=== PATIENT | female | born 1980 | race Hispanic/Latino ===

== ENCOUNTER → 2017-05-20 | Outpatient (CLI) | payer SELFPAY ==
[~2017-05-20] MED LIST: CIPR500T4 PO; HYOS0.1283 SL; IBUP-1780 PO; OMEP40CA36 PO; POLY119P5 PO; POLY17PO6 PO; PRD20T PO; TRAM50TA2 PO
--- NOTE | 2017-05-20 16:57 | Diagnostic Imaging Report ---
INDICATION: Right upper quadrant pain. TECHNIQUE: Multiple grayscale sonographic images were obtained of the right upper quadrant of the abdomen. CORRELATION STUDY: 12/18/2015. FINDINGS: LIVER: There is uniform echotexture within the visualized portions of the liver. GALLBLADDER: The gallbladder is present and demonstrates no definitive shadowing gallstones. No abnormal gallbladder wall thickening or pericholecystic fluid. COMMON BILE DUCT: Not well visualized, obscured. No findings to suggest significant intrahepatic bile duct dilatation. PANCREAS: Visualized portions appearing unremarkable. RIGHT KIDNEY: Measures 10.0 cm. The inferior and medial aspect of the kidney however is obscured by overlying bowel gas. OTHER: None. IMPRESSION: 1. Overall, somewhat limited right upper quadrant ultrasound evaluation with obscuration of the several anatomical structures. Visualized portions appear unremarkable. No definitive gallstones. Dictated by: Dictated on workstation # [id number]
== END ==
LOC: RAD 16:21
PROVIDERS: ATTEND Nurse Practitioner Family
DX: R10.11 Right upper quadrant pain (principal)
CPT/HCPCS: 76705

== ENCOUNTER → 2017-05-29 | Outpatient (CLI) | payer OTHER ==
[~2017-05-29] MED LIST changes: +CATHETER FLUSH 10 ML SYR IV PRN
--- NOTE | 2017-05-29 22:29 | Diagnostic Imaging Report ---
Hepatobiliary scan. INDICATION: Abdominal pain. This study was performed following administration of 5.26 mCi of Choletec. One can of Ensure was also utilized for the ejection fraction calculation. There are no previous nuclear medicine studies available for comparison. The abdominal ultrasound exam performed on 05/20/17 failed to show any sign of cholelithiasis or acute cholecystitis. On this study, there is uptake of the radiotracer by the gallbladder before 30 minutes. This would weigh against the diagnosis of acute cholecystitis. There is also extension of the radiotracer into the small bowel indicating the common bile duct is not obstructed. The ejection fraction is 48.7% (normal greater than 35%). IMPRESSION: 1. There is no evidence for acute cholecystitis or for obstruction of the common bile duct. 2. The ejection fraction is 48.7% and within normal limits. Dictated by: Dictated on workstation # [id number]
== END ==
LOC: CARD 10:09
PROVIDERS: ATTEND Nurse Practitioner Community Health
DX: R10.11 Right upper quadrant pain (principal)
CPT/HCPCS: 78227

== ENCOUNTER 2017-06-20 05:31 | Outpatient (CLI) | payer OTHER ==
[~2017-06-20] VITALS: Ht 157.5 cm; Wt 77.1 kg
[~2017-06-20 05:31] MED LIST changes: -CATHETER FLUSH 10 ML SYR IV PRN
[2017-06-20] MEDS ORDERED: OMEP20TA7 PO (08:46)
[2017-06-20] MEDS ORDERED: RT-ALBUINH IH (08:46)
[2017-06-20] MEDS ORDERED: ONDA4TAB11 SL (08:46)
[2017-06-24] MEDS ORDERED: PANT40TA2 PO (11:57)
== END 2017-06-20 08:48 ==
LOC: PREOP 05:31
PROVIDERS: ATTEND Surgery
DX: Z01.818 Encounter for other preprocedural examination (principal); R10.13 Epigastric pain

== ENCOUNTER 2017-06-24 08:41 | Day surgery (SDC) | payer OTHER ==
[~2017-06-24 08:41] MED LIST changes: +OMEP20TA7 PO; +ONDA4TAB11 SL; +RT-ALBUINH IH
--- OUTSIDE RECORDS SUMMARY | 2017-06-24 08:44 | XMS REPORT ---
Author Author ERICKA العراقي [facility] eClinicalWorks Address Unknown Phone Unavailable Care Team Providers Care Ball Machine Operator Name Role Phone ERICKA العراقي CP Unavailable Allergies, Adverse Reactions, Alerts Substance Reaction Event Type N.K.D.A. Info Not Available Non Drug Allergy Problems Problem Type Condition Code Onset Dates Condition Status Assessment Constipation K59.00 Active Assessment Anxiety F41.9 Active Problem Constipation K59.00 Active Problem Anxiety F41.9 Active Problem Moderate persistent asthma without complication J45.40 Active Assessment Hives L50.9 Active Assessment Moderate persistent asthma without complication J45.40 Active Problem Cough R05 Active Problem Encounter for dental examination Z01.20 Active Medications Medication Code System Code Instructions Start Date End Date Status Dosage ProAir HFA [facility] [address]-06 108 (90 Base) MCG/ACT Inhalation every 4 hrs prn May 30, 2016 1-2 puffs as needed Benadryl Allergy [facility] [address]-37 25 MG Orally every 6 hrs 1 tablet as needed Celexa [facility] [address]-69 20 mg Orally Once a day Aug 05, 2016 1 tablet Zyrtec Allergy [facility] [address]-93 10 mg Orally Once a day Aug 05, 2016 1 tablet Zantac [facility] [address]-46 150 MG Orally Once a day Aug 05, 2016 1 tablet at bedtime Flovent HFA [facility] [address]-18 44 MCG/ACT Inhalation Twice a day May 30, 2016 2 puffs MiraLax [facility] [address]-22 - Orally daily for constipation as needed Jul 17 grams PredniSONE [facility] [address]-05 10 mg Orally Once a day Aug 05, 2016 Aug 25, 2016 4 tablets daily X 4 days then 3 tabs daily x 3 days then 2 tabs daily X 2 days then 1 tab for 1 day Procedures Procedure Coding System Code Date NEB/MDI RX INITIAL CPT-4 73622 Aug 05, 2016 ALBUTEROL INHAL UNIT DOSE 1 MG CPT-4 J7613 Aug 05, 2016 MEASURE BLOOD OXYGEN LEVEL CPT-4 37449 Aug 05, 2016 Office Visit, Est Pt., Level 3 CPT-4 04539 Aug 05, 2016 Vital Signs Date/Time: Aug 05, 2016 Cardiac Monitoring Heart Rate 77 bpm Weight 172.8 lbs Height 62 in BMI 31.60 Index Oximetry on room air:98 % Blood Pressure Diastolic 68 mmHg Blood Pressure Systolic 100 mmHg Results Name Result Date Reference Range Unit Abnormality Flag NEBULIZER TREATMENT ALBUTEROL UNIT DOSE FORM INHALED Summary Purpose eClinicalWorks Submission
--- OUTSIDE RECORDS SUMMARY | 2017-06-24 08:44 | XMS REPORT ---
Author Author KAROL PANIAGUA eClinicalWorks Address Unknown Phone Unavailable Care Team Providers Care Flux Tube Attendant Name Role Phone KAROL PANIAGUA CP Unavailable Allergies, Adverse Reactions, Alerts Substance Reaction Event Type N.K.D.A. Info Not Available Non Drug Allergy Problems Problem Type Condition Code Onset Dates Condition Status Problem Encounter for dental examination Z01.20 Active Assessment Dental examination Z01.20 Active Problem Cough R05 Active Medications Medication Code System Code Instructions Start Date End Date Status Dosage Zyrtec Allergy [facility] [address]-34 10 mg Orally Once a day April 09, 2016 Aug 07, 2016 1 tablet ProAir HFA [facility] [address]-27 108 (90 Base) MCG/ACT Inhalation every 4 hrs prn May 30, 2016 1-2 puffs as needed Lovastatin [facility] [address]-67 10 mg Orally Once a day Jun 07, 2016 2 tablets Flovent HFA [facility] [address]-48 44 MCG/ACT Inhalation Twice a day May 30, 2016 2 puffs Fish Oil [facility] [address]-67 1000 MG Orally Once a day Jun 07, 2016Jun 1 capsule Procedures Procedure Coding System Code Date INTRAORL-PERIAPICAL 1 FILM 75343 CPT-4 D0220 Jul 03, 2016 LTD ORAL EVALUATION - PROBLEM FOCUS CPT-4 D0140 Jul 03, 2016 Vital Signs Date/Time: Jul 03, 2016 Blood Pressure Diastolic 78 mmHg Blood Pressure Systolic 115 mmHg Results No Known Results Summary Purpose eClinicalWorks Submission
--- OUTSIDE RECORDS SUMMARY | 2017-06-24 08:44 | XMS REPORT ---
Author Author MARGARET CHRISTOPHER Organization [facility] Address [address] [place] [address] Care Team Providers Care Product Safety Officer Name Role Phone MARGARET CHRISTOPHER Unavailable PROBLEMS Type Condition ICD9-CM Code WUF38-BQ Code Onset Dates Condition Status SNOMED Code Problem Cough R05 Active 21413403 Problem Encounter for dental examination Z01.20 Active 600329541 Assessment Cough R05 May, Active 52536001 Assessment Palpitation R00.2 May, Active 46319116 ALLERGIES Substance Reaction Event Type Date Status N.K.D.A. Unknown Non Drug Allergy May, Unknown SOCIAL HISTORY No smoking Hx information available PLAN OF CARE VITAL SIGNS Height 62 in 2016-05-30 Weight 172.6 lbs 2016-05-30 Heart Rate 72 bpm 2016-05-30 Respiratory Rate 16 2016-05-30 BMI 31.57 kg/m2 2016-05-30 Blood pressure systolic 102 mmHg 2016-05-30 Blood pressure diastolic 56 mmHg 2016-05-30 MEDICATIONS Medication Instructions Dosage Frequency Start Date End Date Duration Status Levaquin 500 MG Orally Once a day 1 tablet 24h May, May, 10 day(s) Active Flovent HFA 44 MCG/ACT Inhalation Twice a day 2 puffs 12h May, Active Zyrtec Allergy 10 mg Orally Once a day 1 tablet 24h Mar, Jul, 30 day(s) Active Benzonatate 100 MG Orally 3 times a day prn as directed May, May, 07 days Active ProAir HFA 108 (90 Base) MCG/ACT Inhalation every 4 hrs prn 1-2 puffs as needed May, Active RESULTS Name Result Date Reference Range MAGNESIUM, SERUM 2016-05-30 Magnesium, Serum 2.3 1.6-2.3 TSH 2016-05-30 TSH 1.000 0.450-4.500 CBC 2016-05-30 WBC 6.1 3.4-10.8 RBC 4.83 3.77-5.28 Hemoglobin 13.7 11.1-15.9 Hematocrit 40.9 34.0-46.6 MCV 85 79-97 MCH 28.4 26.6-33.0 MCHC 33.5 31.5-35.7 RDW 14.4 12.3-15.4 Platelets 313 150-379 Neutrophils 37 Lymphs 40 Monocytes 5 Eos 17 Basos 1 Neutrophils (Absolute) 2.3 1.4-7.0 Lymphs (Absolute) 2.4 0.7-3.1 Monocytes(Absolute) 0.3 0.1-0.9 Eos (Absolute) 1.0 0.0-0.4 Baso (Absolute) 0.0 0.0-0.2 Immature Granulocytes 0 Immature Grans (Abs) 0.0 0.0-0.1 LIPID PANEL 2016-05-30 Cholesterol, Total 250 100-199 Triglycerides 197 0-149 HDL Cholesterol 44 >39 VLDL Cholesterol Nikhil 39 5-40 LDL Cholesterol Calc 167 0-99 CMP 2016-05-30 Glucose, Serum 87 65-99 BUN 7 6-20 Creatinine, Serum 0.52 0.57-1.00 eGFR If NonAfricn Am 125 >59 eGFR If Africn Am 144 >59 BUN/Creatinine Ratio 13 8-20 Sodium, Serum 139 134-144 Potassium, Serum 4.8 3.5-5.2 Chloride, Serum 99 97-108 Carbon Dioxide, Total 25 18-29 Calcium, Serum 9.8 8.7-10.2 Protein, Total, Serum 7.5 6.0-8.5 Albumin, Serum 4.2 3.5-5.5 Globulin, Total 3.3 1.5-4.5 A/G Ratio 1.3 1.1-2.5 Bilirubin, Total <0.2 0.0-1.2 Alkaline Phosphatase, S 131 39-117 AST (SGOT) 46 0-40 ALT (SGPT) 73 0-32 Xray : Chest (IN HOUSE) 2016-05-30 PROCEDURES Procedure Date Ordered Related Diagnosis Body Site Office Visit, Est Pt., Level 5 May 30, 2016 EKG, TRACING (IN-HOUSE) 2016-05-30 NSR CHEST X-RAY May 30, 2016 LIPID PANEL May 30, 2016 ELECTROCARDIOGRAM, TRACING May 30, 2016 VENIPUNCT, ROUTINE* May 30, 2016 COMPLETE CBC W/AUTO DIFF WBC May 30, 2016 COMPREHEN METABOLIC PANEL May 30, 2016 ASSAY OF MAGNESIUM May 30, 2016 ASSAY THYROID STIM HORMONE May 30, 2016 IMMUNIZATIONS No Known Immunizations
--- OUTSIDE RECORDS SUMMARY | 2017-06-24 08:44 | XMS REPORT ---
Author Author ERICKA العراقي [facility] eClinicalWorks Address Unknown Phone Unavailable Care Team Providers Care Measurement Supervisor Name Role Phone ERICKA العراقي CP Unavailable Allergies, Adverse Reactions, Alerts Substance Reaction Event Type N.K.D.A. Info Not Available Non Drug Allergy Problems Problem Type Condition Code Onset Dates Condition Status Assessment Myalgia M79.1 Active Assessment Epigastric pain R10.13 Active Assessment Hives L50.9 Active Assessment Cough R05 Active Assessment Fever, unspecified fever cause R50.9 Active Medications Medication Code System Code Instructions Start Date End Date Status Dosage Zantac [facility][NOTE 3] [address]-18 150 MG Orally Twice a day Sep 04, 2015 1 tablet Promethazine-Codeine [facility][NOTE 3] [address]-20 6.25-10 MG/5ML Orally every 6 hrs Sep 04, 2015 5 - 10ml as needed Procedures Procedure Coding System Code Date Office Visit, Est Pt., Level 3 CPT-4 36257 Sep 04, 2015 VENIPUNCT, ROUTINE* CPT-4 33934 Sep 04, 2015 COMPLETE CBC W/AUTO DIFF WBC CPT-4 24943 Sep 04, 2015 Vital Signs Date/Time: Sep 04, 2015 Temperature 99.1 F Weight 165.4 lbs Height 62 in BMI 30.25 Index Blood Pressure Diastolic 68 mmHg Blood Pressure Systolic 96 mmHg Cardiac Monitoring Heart Rate 88 bpm Results Name Result Date Reference Range Unit Abnormality Flag ROUTINE VENIPUNCTURE CBC ----MCHC 34.2 81602581 31.5-35.7 g/dL ----MCH 30.4 56709655 26.6-33.0 pg ----Platelets 373 [id number] 150-379 x10E3/uL ----RDW 13.5 91852248 12.3-15.4 % ----Immature Granulocytes 0 75310648 % ----Immature Grans (Abs) 0.0 89031376 0.0-0.1 x10E3/uL ----Lymphs 18 46002784 % ----Monocytes 5 80518275 % ----Neutrophils 64 79856185 % ----Neutrophils (Absolute) 6.7 53127131 1.4-7.0 x10E3/uL ----Hematocrit 44.1 01928948 34.0-46.6 % ----Lymphs (Absolute) 1.9 63363761 0.7-3.1 x10E3/uL ----MCV 89 86737940 79-97 fL ----RBC 4.97 16231659 3.77-5.28 x10E6/uL ----Eos 13 51752271 % ----Basos 0 03126151 % ----Hemoglobin 15.1 29350065 11.1-15.9 g/dL ----Baso (Absolute) 0.0 91004371 0.0-0.2 x10E3/uL ----WBC 10.6 27060357 3.4-10.8 x10E3/uL ----Monocytes(Absolute) 0.6 25728557 0.1-0.9 x10E3/uL ----Eos (Absolute) 1.4 87971775 0.0-0.4 x10E3/uL H Summary Purpose eClinicalWorks Submission
--- OUTSIDE RECORDS SUMMARY | 2017-06-24 08:44 | XMS REPORT ---
Author Author HEATHER BECKER [facility] eClinicalWorks Address Unknown Phone Unavailable Care Team Providers Care Flowers Salesperson Name Role Phone HEATHER BECKER CP Unavailable Allergies, Adverse Reactions, Alerts Substance Reaction Event Type N.K.D.A. Info Not Available Non Drug Allergy Problems Problem Type Condition Code Onset Dates Condition Status Assessment Bronchitis J40 Active Medications Medication Code System Code Instructions Start Date End Date Status Dosage PredniSONE [facility] [address]-95 20 MG Orally Once a day Sep 18, 2015 Sep 23, 2015 as directed Azithromycin [facility] [address]-54 250 MG Orally Once a day Sep 18, 2015 Sep 23, 2015 2 tablets on the first day, then 1 tablet daily for 4 days Promethazine-Codeine [facility] [address]-13 6.25-10 MG/5ML Orally every 6 hrs Sep 04, 2015 Sep 25, 2015 5 - 10ml as needed Zantac [facility] [address]-26 150 MG Orally Twice a day Sep 04, 2015 1 tablet Procedures Procedure Coding System Code Date Office Visit, Est Pt., Level 3 CPT-4 47132 Sep 18, 2015 CHEST X-RAY CPT-4 11702 Sep 18, 2015 Vital Signs Date/Time: Sep 18, 2015 Temperature 97.8 F Weight 166.5 lbs Height 62 in BMI 30.45 Index Blood Pressure Diastolic 78 mmHg Blood Pressure Systolic 110 mmHg Cardiac Monitoring Heart Rate 78 bpm Results No Known Results Summary Purpose eClinicalWorks Submission
--- OUTSIDE RECORDS SUMMARY | 2017-06-24 08:45 | XMS REPORT ---
Author Author MARGARET CHRISTOPHER [facility] eClinicalWorks Address Unknown Phone Unavailable Care Team Providers Care Doubler Operator Name Role Phone MARGARET CHRISTOPHER CP Unavailable Allergies, Adverse Reactions, Alerts Substance Reaction Event Type N.K.D.A. Info Not Available Non Drug Allergy Problems Problem Type Condition Code Onset Dates Condition Status Assessment Other seasonal allergic rhinitis J30.2 Active Problem Encounter for dental examination Z01.20 Active Medications Medication Code System Code Instructions Start Date End Date Status Dosage Benadryl Allergy [facility] [address]-12 25 MG Orally every 6 hrs 1 [place] [address]-73 10 mg Orally twice a day April 09, 2016 April 14, 2016 1 tablet Zyrtec Allergy [facility] [address]-50 10 mg Orally Once a day April 09, 2016 Aug 07, 2016 1 tablet NyQuil NDC 0 not defined Procedures Procedure Coding System Code Date Office Visit, Est Pt., Level 3 CPT-4 05690 April 09, 2016 Vital Signs Date/Time: April 09, 2016 Cardiac Monitoring Heart Rate 68 bpm Weight 171.0 lbs Height 62 in Blood Pressure Diastolic 70 mmHg Blood Pressure Systolic 106 mmHg Results No Known Results Summary Purpose eClinicalWorks Submission
--- OUTSIDE RECORDS SUMMARY | 2017-06-24 08:45 | XMS REPORT | Continuity of Care Document ---
Author Author [facility] Organization [facility] Address Unknown Phone Unavailable Allergies Active Description Code Type Severity Reaction Onset Reported/Identified Relationship to Patient Clinical Status Yes No Known Drug Allergies [id number] Drug Allergy Unknown N/ A 09/04/2015 Medications Problems Date Dx Coded Attending Type Code Diagnosis Diagnosed By 09/04/2015 ADAM GENTILE MD Ot R55 SYNCOPE AND COLLAPSE 09/04/2015 ADAM GENTILE MD Ot T78.40XA ALLERGY, UNSPECIFIED, INITIAL ENCOUNTER 12/20/2015 RHYS POLANCO DO Ot K59.00 CONSTIPATION, UNSPECIFIED 12/20/2015 RHYS POLANCO DO Ot N83.20 UNSPECIFIED OVARIAN CYSTS 12/20/2015 RHYS POLANCO DO Ot R10.11 RIGHT UPPER QUADRANT PAIN 03/18/2016 RADHIKA MÉNDEZ, HANSA T Ot K59.00 CONSTIPATION, UNSPECIFIED 03/18/2016 RADHIKA MÉNDEZ, HANSA T Ot M54.5 LOW BACK PAIN 03/18/2016 RADHIKA MÉNDEZ, HANSA T Ot N83.20 UNSPECIFIED OVARIAN CYSTS 03/19/2016 RADHIKA MÉNDEZ, HANSA T Ot K59.00 CONSTIPATION, UNSPECIFIED 03/19/2016 RADHIKA MÉNDEZ, HANSA T Ot M54.5 LOW BACK PAIN 03/19/2016 RADHIKA MÉNDEZ, HANSA T Ot N83.20 UNSPECIFIED OVARIAN CYSTS 05/26/2017 JAIDEN LAL CATCHER PLUG Ot R10.11 RIGHT UPPER QUADRANT PAIN 05/29/2017 JAIDEN LAL CATCHER PLUG Ot R10.11 RIGHT UPPER QUADRANT PAIN 05/29/2017 JAIDEN LAL CATCHER PLUG Ot R10.11 RIGHT UPPER QUADRANT PAIN 05/30/2017 JAIDEN LAL CATCHER PLUG Ot R10.11 RIGHT UPPER QUADRANT PAIN Procedures Results Encounters ACCT No. Visit Date/Time Discharge Status Pt. Type Provider Facility Loc./Unit Complaint [id number] 06/20/2017 08:30:00 2016 23:59:59 CLS Preadmit KELSEY GONZALEZ DO [facility] PREOP EPIGASTRIC ABDOMINAL PAIN [id number] 05/29/2017 10:09:00 2016 23:59:59 CLS Outpatient MOY العراقي [facility] CARD RUQ PAIN R10.11 [id number] 05/20/2017 16:21:00 2016 23:59:59 CLS Outpatient JAIDEN LAL APRN [facility] RAD RUQ PAIN R10.11 [id number] 03/18/2016 05:20:00 2015 08:16:00 DIS Emergency RADHIKA MÉNDEZ, HANSA Larson [facility] ER BACK PAIN [id number] 12/18/2015 19:45:00 2015 15:34:00 DIS Inpatient RHYS POLANCO DO [facility] 4TH INTRACTABLE PAIN,VOMITING,LEUKOCYTOSIS [id number] 09/04/2015 15:54:00 2014 18:18:00 DIS Emergency KRUPA MÉNDEZ, ADAM Martinez [facility] ER ALLERGIC REACTION [id number] 06/24/2017 11:45:00 PEN Preadmit KELSEY GONZALEZ DO [facility] ENDO EPIGASTRIC ABDOMINAL PAIN
--- OUTSIDE RECORDS SUMMARY | 2017-06-24 08:45 | XMS REPORT ---
Author JENNIFER Serna [facility] eClinicalWorks Address Unknown Phone Unavailable Care Team Providers Care Dramatic Agent Name Role Phone JENNIFER JARVIS CP Unavailable Allergies No Known Allergies Problems Problem Type Condition Code Onset Dates Condition Status Assessment Dental examination Z01.20 Active Problem Encounter for dental examination Z01.20 Active Medications No Known Medications Procedures Procedure Coding System Code Date Dental no charge CPT-4 D0099 May 29, 2016 Results No Known Results Summary Purpose eClinicalWorks Submission
--- OUTSIDE RECORDS SUMMARY | 2017-06-24 08:45 | XMS REPORT ---
Author Author MARGARET CHRISTOPHER [facility] Address [address] [place] [address] Care Team Providers Care Independent Film Maker Name Role Phone MARGARET CHRISTOPHER Unavailable PROBLEMS Type Condition ICD9-CM Code DER70-DP Code Onset Dates Condition Status SNOMED Code Problem Cough R05 Active 01518568 Problem Encounter for dental examination Z01.20 Active 416117592 ALLERGIES Unknown Allergies SOCIAL HISTORY No smoking Hx information available PLAN OF CARE VITAL SIGNS MEDICATIONS Medication Instructions Dosage Frequency Start Date End Date Duration Status Fish Oil 1000 MG Orally Once a day 1 capsule 24h May, Jun, 30 day(s) Active Lovastatin 10 mg Orally Once a day 2 tablets 24h May, 30 day(s ) Active RESULTS No Results PROCEDURES No Known procedures IMMUNIZATIONS No Known Immunizations
--- OUTSIDE RECORDS SUMMARY | 2017-06-24 08:45 | XMS REPORT ---
Author Author MARGARET CHRISTOPHER [facility] Address [address] [place] [address] Care Team Providers Care Patternator Name Role Phone MARGARET CHRISTOPHER Unavailable PROBLEMS Type Condition ICD9-CM Code VQV95-YA Code Onset Dates Condition Status SNOMED Code Problem Cough R05 Active 70154864 Problem Encounter for dental examination Z01.20 Active 242418286 ALLERGIES Unknown Allergies SOCIAL HISTORY No smoking Hx information available PLAN OF CARE VITAL SIGNS MEDICATIONS Unknown Medications RESULTS No Results PROCEDURES No Known procedures IMMUNIZATIONS No Known Immunizations
[2017-06-24 08:50] VITALS: BP 106/66
[2017-06-24] MEDS ORDERED: LACTATED RINGERS 1,000 ML IV ONE (08:59)
[2017-06-24] MEDS ORDERED: HURRICAINE EXT TUBE (BENZOCAINE) XX PRN (09:00)
[2017-06-24] MEDS ORDERED: LACTATED RINGERS 1,000 ML IV SCH (09:30)
--- NOTE | 2017-06-24 10:33 | Progress Note-Pre Operative ---
Pre-Operative Progress Note H&P Reviewed The H&P was reviewed, patient examined and no changes noted. Date Seen by Provider: Jun 24, 2017 Time Seen by Provider: 10:32 Date H&P Reviewed: Jun 24, 2017 Time H&P Reviewed: 10:32 Pre-Operative Diagnosis: h pylori, epigastrc abdominal pain KELSEY GONZALEZ DO Jun 24, 2017 10:33 am
[2017-06-24] MEDS ORDERED: HURRICAINE EXT TUBE (BENZOCAINE) ONE (11:36)
[2017-06-24] MEDS ORDERED: proPOfol 200 MG/20 ML (DIPRIVAN) VIAL IV ONE (11:40)
[2017-06-24] MEDS ORDERED: MIDAZOLAM 2 MG/2 ML (VERSED) VIAL ONE (11:40)
[2017-06-24] MEDS ORDERED: PANT40TA2 PO (11:57)
--- NOTE | 2017-06-24 11:58 | Discharge Inst-Simple/Standard ---
Discharge Inst-Standard Discharge Medications New, Converted or Re-Newed RX: Transmitted to Pharmacy Patient Instructions/Follow Up Plan of Care/Instructions/FU: 2 weeks jasson Activity as Tolerated: Yes Discharge Diet: Regular Diet KELSEY GONZALEZ DO Jun 24, 2017 11:58 am
--- NOTE | 2017-06-24 11:59 | Progress Note-Post Operative ---
Post-Operative Progess Note Surgeon (s)/Macadam Raker (s) Surgeon KELSEY GONZALEZ DO Macadam Raker: na Pre-Operative Diagnosis h pylori, epigastrc abdominal pain Post-Operative Diagnosis gastritis Procedure & Operative Findings Date of Procedure 06/24/17 Procedure Performed/Findings egd c biopsy Anesthesia Type per ui ux engineer Estimated Blood Loss Estimated blood loss (mL): none Specimens/Packing Specimens Removed antrum KELSEY GONZALEZ DO Jun 24, 2017 11:59 am
[2017-06-24 12:30] VITALS: BP 104/53
[2017-06-24 12:58] VITALS: BP 107/55
[2017-06-24 13:10] VITALS: BP 107/55
--- NOTE | 2017-06-26 05:07 | OPERATIVE REPORT ---
DATE OF SERVICE: 06/24/2017 PREOPERATIVE DIAGNOSIS: Helicobacter pylori and epigastric abdominal pain. POSTOPERATIVE DIAGNOSIS: Gastritis. PROCEDURE: EGD with biopsy. SURGEON: Kelsey Reilly DO ANESTHESIA: Per COGNOS ADMINISTRATOR. ESTIMATED BLOOD LOSS: None. COMPLICATIONS: None. SPECIMEN: Antrum. INDICATIONS: The patient is a 36-year-old female who previously been treated for H. pylori. She also has continued epigastric abdominal pain. She understands risks and benefits of procedure and wished to proceed with the procedure. Consent was signed and in the chart. PROCEDURE: The patient was taken to the endoscopy suite, placed in the left lateral recumbent position. Timeout was performed. The scope was inserted in the mouth, down the esophagus, stomach and into the duodenum. There are no polyps, masses or ulcerations within the duodenum. The scope was slowly retracted back into the stomach, which was further insufflated noting erythematous changes present within the stomach. Biopsy of the antrum was obtained. The scope was retroflexed noting no hiatal hernia, no polyps, masses or ulcerations. Scope was returned to its normal position, slowly withdrawn back to the distal esophagus, which had normal appearance. There were no polyps, masses or ulcerations. Scope was then slowly retracted until completely removed, noting no other pathology. The patient tolerated procedure well without any complications. The patient had omeprazole stopped and was prescribed Protonix 40 mg daily and see if any improvement. She will follow up in the office in approximately 3 weeks. Job ID: [id number] DocumentID: [id number] Dictated Date: 06/24/2017 13:41:35 Crowning Hammer Operator Date: 06/25/2017 05:18:58 Dictated By: KELSEY REILLY DO
== END 2017-06-24 13:10 | disposition home or self-care (01) ==
LOC: ENDO 08:41
PROVIDERS: ATTEND Surgery
DX: K29.70 Gastritis, unspecified, without bleeding (principal); A04.8 Other specified bacterial intestinal infections; K21.9 Gastro-esophageal reflux disease without esophagitis
CPT/HCPCS: 84703; 88305; 88342

== ENCOUNTER → 2018-02-02 | Outpatient (CLI) | payer SELFPAY ==
[~2018-02-02] MED LIST changes: +PANT40TA2 PO
--- NOTE | 2018-02-02 13:59 | Diagnostic Imaging Report ---
INDICATION: Abdominal pain. Gallbladder sonography performed in the routine fashion. FINDINGS: The liver shows normal echogenicity with no focal lesions. Gallbladder is unremarkable with no gallstones or wall thickening. Portal vein is patent with flow in the normal direction towards the liver. Common duct measured 4 mm. The pancreas not well-seen due to overlying gas. Right kidney was normal measuring 11.8 cm in length. There is no ascites. IMPRESSION: Negative gallbladder sonography. Dictated by: Dictated on workstation # [id number]
== END ==
LOC: RAD 08:36
PROVIDERS: ATTEND Surgery
DX: R10.9 Unspecified abdominal pain (principal)
CPT/HCPCS: 76705

== ENCOUNTER 2020-06-20 16:53 | Observation (INO) | payer OTHER ==
[~2020-06-20] VITALS: Ht 160 cm; Wt 77.0 kg
[2020-06-20] VITALS (8 sets, daily range): BP systolic 110–121; BP diastolic 66–76
[~2020-06-20 16:53] MED LIST changes: +OMEP40CA27 PO; -OMEP40CA36 PO; -TRAM50TA2 PO; +TRM50T PO
[2020-06-20] MEDS ORDERED: KETOROLAC 30 MG/ML VIAL IVP ONE (18:15)
[2020-06-20] MEDS ORDERED: NS IV 1000 ML 1,000 ML IV SCH (18:15)
[2020-06-20] MEDS ORDERED: ONDANSETRON 4 MG/2 ML (SDV) Z0FRAN IVP ONE (18:15)
--- NOTE | 2020-06-20 18:19 | ED Abdominal Pain ---
General Chief Complaint: Abdominal/GI Problems Stated Complaint: R SIDE ABD PAIN Nursing Triage Note: Pt c/o bilat flank pain and RLQ abd pain and bloating since 1300 today. Pt reports 5 episodes of vomiting. Sepsis Screen: No Definite Risk Source of Information: Patient Exam Limitations: No Limitations History of Present Illness Date Seen by Provider: Jun 20, 2020 Time Seen by Provider: 17:59 Initial Comments 39-year-old female who presents to the emergency room with complaints of bilateral flank pain that radiates to her right lower quadrant abdominal bloating that started around 1300 today. She reports that she's had nausea and vomiting with 5 episodes of vomiting starting around 1300. She denies any fevers, dysuria, diarrhea. She was seen and evaluated at [facility] walk-in [facility] and referred here for possible kidney stone versus appendicitis. Timing/Duration: 4-6 Hours Location: RLQ, Flank Associated Symptoms: Denies Symptoms Allergies and Home Medications Allergies Coded Allergies: No Known Drug Allergies (Verified , 06/24/17) Home Medications Albuterol Sulfate 6.7 Gm Hfa.aer.ad, 2 PUFF IH Q6H PRN for SHORTNESS OF BREATH, (Reported) Ondansetron 4 Mg Tab.rapdis, 4 MG SL Q8H, (Reported) Pantoprazole Sodium 40 Mg Tablet.dr, 40 MG PO DAILY Prescribed by: KELSEY REILLY on 06/24/17 1157 Patient Home Medication List Home Medication List Reviewed: Yes Review of Systems Review of Systems Constitutional: see HPI; No chills, No fever Gastrointestinal: See HPI, Nausea, Vomiting Genitourinary: See HPI, Flank Pain All Other Systems Reviewed Negative Unless Noted: Yes Past Rvrcsyj-Dlzvbw-Bipvmf Hx Past Med/Social Hx: Reviewed Nursing Past Med/Soc Hx Patient Social History Alcohol Use: Denies Use Recreational Drug Use: No Smoking Status: Never a Smoker Recent Foreign Travel: No Contact w/Someone Who Travel: No Recent Infectious Disease Expo: No Recent Hopitalizations: No Immunizations Up To Date Tetanus Booster (TDap): Unknown Seasonal Allergies Seasonal Allergies: No Past Medical History Surgeries: Yes Tubal Ligation Respiratory: Yes Asthma Cardiac: Yes High Cholesterol Neurological: No 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 Disorders: No 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 No Pertinent Family Hx Physical Exam Vital Signs Vital Signs - First Documented 06/20/20 17:55 Temp 37.2 Pulse 74 Resp 18 B/P (MAP) 124/88 (100) Pulse Ox 98 O2 Delivery Room Air Capillary Refill : Less Than 3 Seconds Height/Weight/BMI Height: 5'2.00" Weight: 170lbs. 0.0oz. 77.452687ml; 30.00 BMI Method:Stated General Appearance: WD/WN, no apparent distress Respiratory: chest non-tender, lungs clear, normal breath sounds, no respiratory distress, no accessory muscle use Cardiovascular: normal peripheral pulses, regular rate, rhythm, no edema, no gallop, no JVD, no murmur Gastrointestinal: normal bowel sounds, non tender, soft, no organomegaly, no pulsatile mass Extremities: normal capillary refill Back: CVA tenderness (R), CVA tenderness (L) Neurologic/Psychiatric: alert, normal mood/affect, oriented x 3 Skin: normal color, warm/dry Progress/Results/Core Measures Results/Orders Lab Results Laboratory Tests Test 06/20/20 18:20 Range/Units White Blood Count 15.5 H 4.3-11.0 10^3/uL Red Blood Count 4.39 3.80-5.11 10^6/uL Hemoglobin 12.8 11.5-16.0 g/dL Hematocrit 38 35-52 % Mean Corpuscular Volume 87 80-99 fL Mean Corpuscular Hemoglobin 29 25-34 pg Mean Corpuscular Hemoglobin Concent 34 32-36 g/dL Red Cell Distribution Width 12.7 10.0-14.5 % Platelet Count 326 130-400 10^3/uL Mean Platelet Volume 11.0 9.0-12.2 fL Immature Granulocyte % (Auto) 0 % Neutrophils (%) (Auto) 82 H 42-75 % Lymphocytes (%) (Auto) 10 L 12-44 % Monocytes (%) (Auto) 3 0-12 % Eosinophils (%) (Auto) 3 0-10 % Basophils (%) (Auto) 0 0-10 % Neutrophils # (Auto) 12.7 H 1.8-7.8 10^3/uL Lymphocytes # (Auto) 1.6 1.0-4.0 10^3/uL Monocytes # (Auto) 0.5 0.0-1.0 10^3/uL Eosinophils # (Auto) 0.5 H 0.0-0.3 10^3/uL Basophils # (Auto) 0.1 0.0-0.1 10^3/uL Immature Granulocyte # (Auto) 0.1 0.0-0.1 10^3/uL Neutrophils % (Manual) 87 % Lymphocytes % (Manual) 11 % Monocytes % (Manual) 0 % Eosinophils % (Manual) 2 % Basophils % (Manual) 0 % Metamyelocytes % % Band Neutrophils 0 % Blood Morphology Comment NORMAL Sodium Level 137 135-145 MMOL/L Potassium Level 3.5 L 3.6-5.0 MMOL/L Chloride Level 102 98-107 MMOL/L Carbon Dioxide Level 24 21-32 MMOL/L Anion Gap 11 5-14 MMOL/L Blood Urea Nitrogen 10 7-18 MG/DL Creatinine 0.68 0.60-1.30 MG/DL Estimat Glomerular Filtration Rate > 60 BUN/Creatinine Ratio 15 Glucose Level 95 70-105 MG/DL Calcium Level 8.6 8.5-10.1 MG/DL Corrected Calcium 8.8 8.5-10.1 MG/DL Total Bilirubin 0.3 0.1-1.0 MG/DL Aspartate Amino Transf (AST/SGOT) 19 5-34 U/L Alanine Aminotransferase (ALT/SGPT) 22 0-55 U/L Alkaline Phosphatase 79 40-136 U/L Total Protein 7.2 6.4-8.2 GM/DL Albumin 3.8 3.2-4.5 GM/DL Amylase Level 48 25-125 U/L Lipase 16 8-78 U/L Serum Test, Qualitative NEGATIVE NEGATIVE My Orders Orders - LASHONDA CANNON Comprehensive Metabolic Panel (06/20/20 17:48) Lipase (06/20/20 17:48) Amylase (06/20/20 17:48) Ua Culture If Indicated (06/20/20 17:48) Hcg,Qualitative Serum (06/20/20 17:48) Ed Iv/Invasive Line Start (06/20/20 17:48) Cbc With Automated Diff (06/20/20 17:48) Ct Abd/Pelvis Wo(Kidney Stone) (06/20/20 17:48) Abdomen/Kub 1view (06/20/20 17:48) Ketorolac Injection (Toradol Injection) (06/20/20 18:15) Ondansetron Injection (Zofran Injectio (06/20/20 18:15) Ns Iv 1000 Ml (Sodium Chloride 0.9%) (06/20/20 18:15) Manual Differential (06/20/20 18:20) Piperacillin/Tazobactam (Bulk) (Zosyn In (06/20/20 19:30) Medications Given in ED Current Medications Medications Dose Ordered Sig/Kevin Route Start Time Stop Time Status Last Admin Dose Admin Ketorolac Tromethamine 30 mg ONCE ONCE IVP 06/20/20 18:15 06/20/20 18:16 DC 06/20/20 18:19 30 MG Ondansetron HCl 8 mg ONCE ONCE IVP 06/20/20 18:15 06/20/20 18:16 DC 06/20/20 18:19 8 MG Vital Signs/I&O 06/20/20 17:55 Temp 37.2 Pulse 74 Resp 18 B/P (MAP) 124/88 (100) Pulse Ox 98 O2 Delivery Room Air Blood Pressure Mean: 100 Progress Progress Note : Time: 19:12 Progress Note I have seen and evaluated the patient. I've informed her of her laboratory and imaging studies. Her pain has improved after medication. I did discuss the case with Dr. Reilly at this time and he agrees to take the patient to [place] tonight. Patient agrees with plan of care and plans for surgery. Departure Impression Primary Impression: Appendicitis Disposition: ADMITTED INPATIENT Condition: Stable/Unchanged Admissions Decision to Admit Reason: Admit from ER (General) Decision to Admit/Date: Jun 20, 2020 Time/Decision to Admit Time: 19:39 Departure-Patient Inst. Referrals: [facility] (PCP) Primary Care Physician RHYS POLANCO DO (Family) Primary Care Physician LASHONDA CANNON Jun 20, 2020 18:19
--- NOTE | 2020-06-20 18:31 | NUR ---
Patient's contacted for update on care per patient request.
[2020-06-20 18:40] LABS: BASOPHILS # (AUTO) 0.1 10^3/uL (0.0-0.1); BASOPHILS % (AUTO) 0 % (0-10); EOSINOPHILS # (AUTO) 0.5 10^3/uL (0.0-0.3); EOSINOPHILS % (AUTO) 3 % (0-10); HEMATOCRIT 38 % (35-52); HEMOGLOBIN 12.8 g/dL (11.5-16.0); LYMPHOCYTES # (AUTO) 1.6 10^3/uL (1.0-4.0); LYMPHOCYTES % (AUTO) 10 % (12-44); MEAN CORPUSCULAR HEMOGLOBIN 29 pg (25-34); MEAN CORPUSCULAR HGB CONC 34 g/dL (32-36); MEAN CORPUSCULAR VOLUME 87 fL (80-99); MONOCYTES # (AUTO) 0.5 10^3/uL (0.0-1.0); MONOCYTES % (AUTO) 3 % (0-12); NEUTROPHILS # (AUTO) 12.7 10^3/uL (1.8-7.8); NEUTROPHILS % (AUTO) 82 % (42-75); PLATELET COUNT 326 10^3/uL (130-400); WHITE BLOOD COUNT 15.5 10^3/uL (4.3-11.0)
--- NOTE | 2020-06-20 18:52 | Diagnostic Imaging Report ---
INDICATION: Bilateral flank pain, right lower quadrant pain. Time of exam: 6:42 PM Single view of the abdomen demonstrates bowel gas pattern to be nonobstructive. No pathologic calcifications are seen. IMPRESSION: No acute abnormality is detected. Dictated by: Dictated on workstation # [id number]
[2020-06-20 19:01] LABS: ALBUMIN 3.8 GM/DL (3.2-4.5); CHLORIDE 102 MMOL/L (98-107); POTASSIUM 3.5 MMOL/L (3.6-5.0); SODIUM 137 MMOL/L (135-145)
[2020-06-20 19:02] LABS: AMYLASE 48 U/L (25-125)
--- NOTE | 2020-06-20 19:02 | Diagnostic Imaging Report ---
PROCEDURE: CT urinary tract, rule out kidney stone. TECHNIQUE: Multiple contiguous axial images were obtained through the abdomen and pelvis without the use of intravenous contrast. Auto Exposure Controls were utilized during the CT exam to meet ALARA standards for radiation dose reduction. DATE: June 20, 2020. COMPARISON: Right upper quadrant ultrasound February 02, 2018. CT abdomen and pelvis March 18, 2016. INDICATION: 39-year-old female, bilateral flank and right lower quadrant abdominal pain. FINDINGS: There are limitations for evaluation of the abdominal organs, neoplastic processes, abscess, and limited evaluation of the vasculature relating to the lack of intravenous contrast. There is a 5 mm calcified left lower lobe granuloma. The additional visualized portions of the lung bases are clear. The heart is not enlarged. There is no identified pericardial effusion. The liver is unremarkable in size and contour. The gallbladder is unremarkable. There is no identified intrahepatic or extrahepatic bile duct dilation. The main pancreatic duct is not abnormally dilated. Limited noncontrast evaluation of the pancreatic parenchyma is unremarkable. The spleen is normal in size. The adrenal glands are unremarkable. Unremarkable appearance of the renal parenchyma. The urinary collecting systems are not distended. There is no identified renal or ureteral stone. Urinary bladder is unremarkable. The intestinal tract is not distended. The appendix is abnormally dilated with adjacent inflammatory stranding on axial image 16 adjacent sequential images. The appendix measures up to 12 mm in diameter. This is also well illustrated on coronal image 52 and adjacent sequential images. These findings are consistent with acute appendicitis. There is no free intraperitoneal air. There is no drainable fluid collection. There is no free pelvic fluid. There is no identified abnormally enlarged lymph node in the abdomen or pelvis which meets CT size criteria for adenopathy. There is a sclerotic lesion in the right proximal femoral diaphysis measuring 7 limited are in size with internal attenuation of 1161 Hounsfield units. This most likely relates to a benign bone island. There is no identified acute bony abnormality. IMPRESSION: CT ABDOMEN AND PELVIS. 1. Findings consistent with acute appendicitis without evidence of perforation or abscess. Dictated by: Dictated on workstation # [id number]
[2020-06-20 19:03] LABS: CALCIUM 8.6 MG/DL (8.5-10.1)
[2020-06-20 19:04] LABS: GLUCOSE 95 MG/DL (70-105); TOTAL PROTEIN 7.2 GM/DL (6.4-8.2)
[2020-06-20 19:05] LABS: CARBON DIOXIDE 24 MMOL/L (21-32)
[2020-06-20 19:06] LABS: BILIRUBIN,TOTAL 0.3 MG/DL (0.1-1.0)
[2020-06-20 19:07] LABS: ALKALINE PHOSPHATASE 79 U/L (40-136); CREATININE SERUM 0.68 MG/DL (0.60-1.30); GFR ESTIMATED > 60
[2020-06-20 19:09] LABS: BUN/CREATININE RATIO 15
[2020-06-20 19:10] LABS: ALANINE AMINOTRANSFERASE 22 U/L (0-55)
[2020-06-20 19:11] LABS: LIPASE 16 U/L (8-78)
[2020-06-20 19:12] LABS: BAND NEUTROPHILS 0 %; BASOPHILS % (MANUAL) 0 %; EOSINOPHILS % (MANUAL) 2 %; LYMPHOCYTES % (MANUAL) 11 %; MONOCYTES % (MANUAL) 0 %; NEUTROPHILS % (MANUAL) 87 %; RBC MORPH NORMAL
[2020-06-20] MEDS ORDERED: PIPERACILLIN/TAZOBACTAM (BULK) 4.5 GM in NS (IVPB) 100 ML IV ONE (19:30)
--- NOTE | 2020-06-20 19:41 | Consultation - Surgery ---
KINGSLEY PRICE MED STUDENT 06/20/201940: History of Present Illness History of Present Illness Patient Consulted On(alecia/time) 06/20/20 19:36 Date Seen by Provider: Jun 20, 2020 Time Seen by Provider: 07:30 Reason for Visit: abdominal pain History of Present Illness Consult placed by BOB Musa for appendicitis by CT scan. Evaluated in the emergency department The patient primarily speaks [place] but is able to speak some [place]ian. History initially limited due to language barrier. The patient complains of abdominal pain beginning at 1 pm with nausea and 2 episodes of vomiting. Pain radiates to the back. Denies home medication use. Reports allergy to acetaminophen. History of 4 vaginal deliveries, tubal ligation, no prior surgeries. CT abdomen pelvis impression: 1. Findings consistent with acute appendicitis without evidence of perforation or abscess. Interpreted by Dr. Cobb Allergies and Home Medications Allergies Coded Allergies: No Known Drug Allergies (Verified , 06/24/17) Home Medications Albuterol Sulfate 6.7 Gm Hfa.aer.ad, 2 PUFF IH Q6H PRN for SHORTNESS OF BREATH, (Reported) Ondansetron 4 Mg Tab.rapdis, 4 MG SL Q8H, (Reported) Pantoprazole Sodium 40 Mg Tablet.dr, 40 MG PO DAILY Prescribed by: KELSEY GONZALEZ on 06/24/17 1157 Past Vgavmfu-Kohwib-Xxzpuf Hx Patient Social History Alcohol Use: Denies Use Recreational Drug Use: No Smoking Status: Never a Smoker Recent Foreign Travel: No Contact w/Someone Who Travel: No Recent Infectious Disease Expo: No Recent Hopitalizations: No Immunizations Up To Date Tetanus Booster (TDap): Unknown Seasonal Allergies Seasonal Allergies: No Surgeries History of Surgeries: Yes Surgeries: Tubal Ligation Respiratory History of Respiratory Disorde: Yes Respiratory Disorders: Asthma Cardiovascular History of Cardiac Disorders: Yes Cardiac Disorders: High Cholesterol Neurological History of Neurological Disord: No 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 System Hx 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 Disorders: 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 Review of Systems-General ROS-Unable to Obtain: limited by language barrier Gastrointestinal: abdominal pain, nausea, vomiting Physical Exam-General Problems Physical Exam Vital Signs Vital Signs - First Documented 06/20/20 17:55 Temp 37.2 Pulse 74 Resp 18 B/P (MAP) 124/88 (100) Pulse Ox 98 O2 Delivery Room Air Capillary Refill : Less Than 3 Seconds General Appearance: WD/WN, no apparent distress HEENT: PERRL/EOMI Neck: non-tender, full range of motion, supple Respiratory: chest non-tender, lungs clear, normal breath sounds, no respiratory distress, no accessory muscle use Cardiovascular: regular rate, rhythm, no edema, no JVD, no murmur, gallop/S3 Gastrointestinal: soft, no organomegaly, no pulsatile mass, tenderness (moderate RLQ) Extremities: normal range of motion, non-tender Neurologic/Psychiatric: alert, normal mood/affect, oriented x 3 Skin: normal color, warm/dry Lymphatic: no adenopathy Data Review Labs Laboratory Tests 06/20/20 18:20: White Blood Count 15.5H, Red Blood Count 4.39, Hemoglobin 12.8, Hematocrit 38, Mean Corpuscular Volume 87, Mean Corpuscular Hemoglobin 29, Mean Corpuscular Hemoglobin Concent 34, Red Cell Distribution Width 12.7, Platelet Count 326, Mean Platelet Volume 11.0, Immature Granulocyte % (Auto) 0, Neutrophils (%) (Auto) 82H, Lymphocytes (%) (Auto) 10L, Monocytes (%) (Auto) 3, Eosinophils (%) (Auto) 3, Basophils (%) (Auto) 0, Neutrophils # (Auto) 12.7H, Lymphocytes # (Auto) 1.6, Monocytes # (Auto) 0.5, Eosinophils # (Auto) 0.5H, Basophils # (Auto) 0.1, Immature Granulocyte # (Auto) 0.1, Neutrophils % (Manual) 87, Lymphocytes % (Manual) 11, Monocytes % (Manual) 0, Eosinophils % (Manual) 2, Basophils % (Manual) 0, Metamyelocytes % , Band Neutrophils 0, Blood Morphology Comment NORMAL, Sodium Level 137, Potassium Level 3.5L, Chloride Level 102, Carbon Dioxide Level 24, Anion Gap 11, Blood Urea Nitrogen 10, Creatinine 0.68, Estimat Glomerular Filtration Rate > 60, BUN/Creatinine Ratio 15, Glucose Level 95, Calcium Level 8.6, Corrected Calcium 8.8, Total Bilirubin 0.3, Aspartate Amino Transf (AST/SGOT) 19, Alanine Aminotransferase (ALT/SGPT) 22, Alkaline Phosphatase 79, Total Protein 7.2, Albumin 3.8, Amylase Level 48, Lipase 16, Serum Test, Qualitative NEGATIVE Assessment/Plan Assessment/Plan Admission Diagonsis RLQ abdominal pain nausea vomiting acute appendicitis Assessment/Plan RLQ abdominal pain nausea vomiting acute appendicitis start Zosyn surgery for appendicitis KELSEY Bruce DO 06/20/202032: History of Present Illness History of Present Illness History of Present Illness Consult requested by Prasanna Aldridge for appendicitis Monogram Operator line used. 39 yr old female began having pain in the rlq abdomen today at 1 pm. Moves to the right hip and back. Contraction type pain. Having nausea and vomiting. Patient states movement makes worse, nothing better. WBC [address] scan reviewed and consistent with appendicitis. Allergies and Home Medications Allergies Coded Allergies: No Known Drug Allergies (Verified , 06/24/17) Home Medications Albuterol Sulfate 6.7 Gm Hfa.aer.ad, 2 PUFF IH Q6H PRN for SHORTNESS OF BREATH, (Reported) Ondansetron 4 Mg Tab.rapdis, 4 MG SL Q8H, (Reported) Pantoprazole Sodium 40 Mg Tablet.dr, 40 MG PO DAILY Prescribed by: KELSEY GONZALEZ on 06/24/17 7661 Patient Home Medication List Home Medication List Reviewed: Yes Past Ldzamhc-Ewndxd-Jniscf Hx Seasonal Allergies Seasonal Allergies: Yes Surgeries Surgeries: Tubal Ligation Respiratory History of Respiratory Disorde: Yes Respiratory Disorders: Asthma Cardiovascular History of Cardiac Disorders: No Neurological History of Neurological Disord: No 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 System : 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 Review of Systems-General Constitutional: No chills, No weakness EENTM: No ear pain, No blurred vision Respiratory: No cough, No dyspnea on exertion Cardiovascular: No chest pain, No edema Gastrointestinal: RLQ, abdominal pain (RLQ), nausea, vomiting Genitourinary: No decreased output, No discharge Musculoskeletal: back pain; No joint pain Skin: No change in color, No change in hair/nails Psychiatric/Neurological: Denies Anxiety, Denies Depressed, Denies Emotional Problems All Other Systems Reviewed Negative Unless Noted: Yes (Negative excepted noted.) Physical Exam-General Problems Physical Exam General Appearance: WD/WN, no apparent distress HEENT: PERRL/EOMI Neck: non-tender, full range of motion, supple Respiratory: chest non-tender, no respiratory distress, no accessory muscle use Cardiovascular: regular rate, rhythm, no edema, no JVD Gastrointestinal: soft, tenderness ( RLQ) Rectal: deferred Extremities: normal range of motion, non-tender Neurologic/Psychiatric: alert, normal mood/affect, oriented x 3 Skin: normal color, warm/dry Lymphatic: no adenopathy Assessment/Plan Assessment/Plan Assessment/Plan RLQ abdominal pain nausea vomiting acute appendicitis Zosyn NPO IV hydration consent for laparoscopic appendectomy all other indicated procedures patient discussed risks and benefits and wishes to proceed. to or. Supervisory-Addendum Brief Verification & Attestation Participated in pt care: history, MDM, physical Personally performed: exam, history, MDM, supervision of care Care discussed with: Medical Student Procedures: n/a Results interpretation: Verified all documentation Verification and Attestation of Medical Student E/M Service A medical student performed and documented this service in my presence. I rev iewed and verified all information documented by the medical student and made modifications to such information, when appropriate. I personally performed the physical exam and medical decision making. Kelsey Gonzalez, Jun 20, 2020,20:35 KINGSLEY PRICE MED STUDENT Jun 20, 2020 19:41 KELSEY GONZALEZ DO Jun 20, 2020 20:33
[2020-06-20 19:46] LABS: BILIRUBIN,URINE NEGATIVE (NEGATIVE); CLARITY,URINE CLEAR; COLOR,URINE YELLOW; GLUCOSE, URINE (UA) NEGATIVE (NEGATIVE); KETONES,URINE TRACE (NEGATIVE); LEUKOCYTE ESTERASE ,URINE NEGATIVE (NEGATIVE); NITRITE,URINE NEGATIVE (NEGATIVE); PROTEIN,URINE NEGATIVE (NEGATIVE)
[2020-06-20 19:57] LABS: BACTERIA,URINE TRACE /HPF; WBC,URINE RARE /HPF
[2020-06-20] MEDS ORDERED: NS (IVPB) 100 ML ONE (20:01)
[2020-06-20] MEDS ORDERED: PIPERACILLIN/TAZO 4.5 GM VIAL (ZOSYN) IV ONE (20:01)
[2020-06-20] MEDS ORDERED: ONDANSETRON 4 MG/2 ML (SDV) Z0FRAN ONE (20:12)
[2020-06-20] MEDS ORDERED: MIDAZOLAM 2 MG/2 ML (VERSED) VIAL ONE (20:12)
[2020-06-20] MEDS ORDERED: SEVOFLURANE (ULTANE) 15 ML INHAL SOLN ONE ×2 (20:12→21:29)
[2020-06-20] MEDS ORDERED: GLYCOPYRROLATE 0.2 MG/ML (ROBINUL) 2 ML VIAL ONE (20:12)
[2020-06-20] MEDS ORDERED: LIDOCAINE PF 2% 5 ML (XYLOCAINE) VIAL ONE (20:12)
[2020-06-20] MEDS ORDERED: fentaNYL INJECTION 100 MCG/2 ML AMP ONE (20:12)
[2020-06-20] MEDS ORDERED: NEOSTIGMINE 3 MG/3 ML VIAL ONE (20:12)
[2020-06-20] MEDS ORDERED: proPOfol 200 MG/20 ML (DIPRIVAN) VIAL IV ONE (20:12)
[2020-06-20] MEDS ORDERED: ROCURONIUM 10 MG/ML 5 ML SYRINGE IV ONE (20:12)
[2020-06-20] MEDS ORDERED: BUP/EPI 0.25% 1:200,000 (MARCAINE) 30 ML VIAL ONE (20:13)
[2020-06-20] MEDS ORDERED: LACTATED RINGERS 1,000 ML IV PRN (21:07)
[2020-06-20] MEDS ORDERED: ONDANSETRON 4 MG/2 ML (SDV) Z0FRAN IV PRN (21:45)
[2020-06-20] MEDS ORDERED: morphine INJ 10 MG/ML 1ML (SYR OR VIAL) ONE (21:46)
--- NOTE | 2020-06-20 21:59 | Progress Note-Post Operative ---
Post-Operative Progess Note Surgeon (s)/Nematology Teacher (s) Surgeon KELSEY GONZALEZ DO Nematology Teacher: NA Pre-Operative Diagnosis RLQ abdominal pain, appendicitis Post-Operative Diagnosis same Procedure & Operative Findings Date of Procedure 06/20/20 Procedure Performed/Findings PROCEDURE: Laparoscopic appendectomy. COMPLICATIONS: None. INDICATIONS: The patient is a 39 year old female who has been having right lower quadrant abdominal pain. Patient's exam consistent with appendicitis. I discussed risk and benefits of laparoscopic appendectomy and all indicated procedures with the possibility being a normal appendix. The patient understands the risks and benefits and wishes to proceed. Consent was signed on the chart. DESCRIPTION OF PROCEDURE: The patient was taken to the operating suite, prepped and draped in a sterile fashion. Timeout was performed. Local anesthetic was infiltrated just above the umbilicus and 11-blade scalpel was used to make a skin incision. Cautery was used to dissect down to the fascia and scored. Kochers were used to grasp and elevate it and the abdomen was then entered. A 0 Vicryl was placed in a [id number] fashion for closure at the end of the case. The balloon trocar was inserted into the abdomen and pneumoperitoneum was achieved. Under direct visualization of the laparoscope, a 5 mm trocar was placed in the suprapubic region and a 5 mm trocar was placed in the left lower quadrant. Appendix was located, dilated and inflamed. The base of the appendix was dissected around. Once at the base an Endo-JACQUELINE 2.5 stapler was then fired across the base of the appendix. The mesoappendix was then divided using Ligasure next to the appendix. It was then placed in an Endobag and removed through the 12 mm trocar site. The abdomen was then irrigated and suctioned. No other pathology noted. The abdomen was then desufflated and the trocars were removed. The 0 Vicryl placed at the beginning of the case was then tied closing the 12 mm fascial defect. The skin was then closed using 4-0 Monocryl in a subcuticular fashion. The abdomen was then washed and dried and Skin Affix was placed over the incisions. The patient tolerated the procedure well without any complications and was taken to the recovery room in stable condition. Anesthesia Type general Estimated Blood Loss Estimated blood loss (mL): minimal Specimens/Packing Specimens Removed appendix KELSEY GONZALEZ DO Jun 20, 2020 21:59
[2020-06-20] MEDS ORDERED: morphine INJ 10 MG/ML 1ML (SYR OR VIAL) IVP ONE (22:00)
[2020-06-20] MEDS ORDERED: ONDANSETRON 4 MG/2 ML (SDV) Z0FRAN IVP PRN (22:00)
[2020-06-20] MEDS: LACTATED RINGERS 1,000 ML IV SCH ×2 (22:02→23:49)
[2020-06-20] MEDS ORDERED: LACTATED RINGERS 1,000 ML IV ONE (23:11)
[2020-06-20] MEDS ORDERED: metroNIDAZOLE 500MG/100ML IVPB 100 ML ONE (23:11)
[2020-06-20] MEDS ORDERED: WATER (STERILE) FOR INJECTION 10 ML ONE (23:12)
[2020-06-20] MEDS ORDERED: ceFAZolin INJECTION 1,000 MG ONE (23:12)
[2020-06-20] MEDS: metroNIDAZOLE 500MG/100ML IVPB 100 ML IV SCH (23:48)
[2020-06-20] MEDS: ceFAZolin INJECTION 1,000 MG in WATER (STERILE) FOR INJECTION 10 ML IV SCH (23:52)
[2020-06-21] MEDS ORDERED: morphine INJ 4 MG/ML 1 ML (VIAL/SYRINGE) ONE (03:49)
[2020-06-21] MEDS: morphine INJ 4 MG/ML 1 ML (VIAL/SYRINGE) IVP PRN ×2 (03:57→10:16)
[2020-06-21 04:35] VITALS: BP 100/64
[2020-06-21] MEDS: ceFAZolin INJECTION 1,000 MG in WATER (STERILE) FOR INJECTION 10 ML IV SCH ×2 (06:25→12:45)
[2020-06-21] MEDS: metroNIDAZOLE 500MG/100ML IVPB 100 ML IV SCH ×2 (06:25→12:45)
[2020-06-21] MEDS ORDERED: FLU QUADRIvalent (3YOA+) 60 mcg/0.5 ml 2020-21 (AFLURIA) IM ONE (07:15)
--- NOTE | 2020-06-21 07:43 | Anesthesia-General Post-Op ---
General Patient Condition Mental Status/LOC: Same as Preop Cardiovascular: Satisfactory Nausea/Vomiting: Absent Respiratory: Satisfactory Pain: Controlled Complications: Absent Post Op Complications Complications None Follow Up Care/Instructions Patient Instructions None needed. Anesthesia/Patient Condition Patient Condition Patient is doing well, no complaints, stable vital signs, no apparent adverse anesthesia problems. No complications reported per nursing. [place] [facility] [place]: Yes MOMO ARGUELLO CRNA Jun 21, 2020 07:43
[2020-06-21 08:00] VITALS: BP 84/56
[2020-06-21 10:30] VITALS: BP 97/63
[2020-06-21 12:00] VITALS: BP 108/72
[2020-06-21] MEDS: HYDROcodone/APAP 5 MG/325 MG (LORTAB) TAB PO PRN ×2 (13:12→17:25)
--- NOTE | 2020-06-21 13:32 | Progress Note - Surgery ---
REJI VERA MED STUDENT 06/21/20 1332: Subjective Date Seen by a Provider: Jun 21, 2020 Time Seen by a Provider: 07:50 Subjective/Events-last exam Pt doing better today after pain medication, but still in pain. States pain yesterday was 10/10, but today is 7/10. Says the pain is on her right side and radiates into her hip. Denies fever. Says she is allergic to acetaminophen and it worsens her asthma. Hx limited by language barrier. Objective Exam Vital Signs Date Time Temp Pulse Resp B/P (MAP) Pulse Ox O2 Delivery O2 Flow Rate FiO2 06/21/20 12:00 35.4 65 18 108/72 (84) 96 Room Air 06/21/20 10:30 97/63 (74) 06/21/20 08:00 36.2 59 18 84/56 (65) 97 Room Air 06/21/20 04:35 36.4 60 16 100/64 (76) 95 Room Air 06/21/20 03:48 Room Air 06/20/20 23:30 36.4 84 16 110/70 (83) 97 Room Air 06/20/20 22:45 36.5 18 118/74 (89) 96 Room Air 06/20/20 22:45 Room Air 06/20/20 22:40 18 114/72 (86) 97 Room Air 06/20/20 22:35 Room Air 06/20/20 22:30 18 112/69 (83) 98 Room Air 06/20/20 22:28 Room Air 06/20/20 22:25 OxyMask 2 06/20/20 22:20 18 112/71 (85) 100 OxyMask 4 06/20/20 22:19 OxyMask 4 06/20/20 22:12 OxyMask 6 06/20/20 22:10 18 117/71 (86) 100 OxyMask 6 06/20/20 22:07 OxyMask 6 06/20/20 22:00 18 121/66 (84) 100 OxyMask 6 06/20/20 21:53 OxyMask 6 06/20/20 21:53 36.4 16 121/76 (91) 100 OxyMask 6 06/20/20 20:30 82 17 122/86 99 Room Air 06/20/20 17:55 37.2 74 18 124/88 (100) 98 Room Air I & O 06/21/20 07:00 Intake Total 1580 ml Output Total 450 ml Balance 1130 ml Capillary Refill : Less Than 3 SecondsLess Than 3 Seconds General Appearance: No Apparent Distress, WD/WN HEENT: PERRL/EOMI, Normal ENT Inspection Neck: Normal Inspection, Supple Respiratory: Lungs Clear, Normal Breath Sounds, No Accessory Muscle Use, No Respiratory Distress Cardiovascular: Regular Rate, Rhythm, No Murmur Gastrointestinal: soft, tenderness (right-sided) Extremity: Normal Inspection, Normal Range of Motion Neurologic/Psychiatric: Alert, Oriented x3, Normal Mood/Affect Skin: Normal Color, Warm/Dry Lymphatic: No Adenopathy Results Lab Laboratory Tests 06/20/20 18:20: White Blood Count 15.5H, Red Blood Count 4.39, Hemoglobin 12.8, Hematocrit 38, Mean Corpuscular Volume 87, Mean Corpuscular Hemoglobin 29, Mean Corpuscular Hemoglobin Concent 34, Red Cell Distribution Width 12.7, Platelet Count 326, Mean Platelet Volume 11.0, Immature Granulocyte % (Auto) 0, Neutrophils (%) (Auto) 82H, Lymphocytes (%) (Auto) 10L, Monocytes (%) (Auto) 3, Eosinophils (%) (Auto) 3, Basophils (%) (Auto) 0, Neutrophils # (Auto) 12.7H, Lymphocytes # (Auto) 1.6, Monocytes # (Auto) 0.5, Eosinophils # (Auto) 0.5H, Basophils # (Auto) 0.1, Immature Granulocyte # (Auto) 0.1, Neutrophils % (Manual) 87, Lymphocytes % (Manual) 11, Monocytes % (Manual) 0, Eosinophils % (Manual) 2, Basophils % (Manual) 0, Metamyelocytes % , Band Neutrophils 0, Blood Morphology Comment NORMAL, Sodium Level 137, Potassium Level 3.5L, Chloride Level 102, Carbon Dioxide Level 24, Anion Gap 11, Blood Urea Nitrogen 10, Creatinine 0.68, Estimat Glomerular Filtration Rate > 60, BUN/Creatinine Ratio 15, Glucose Level 95, Calcium Level 8.6, Corrected Calcium 8.8, Total Bilirubin 0.3, Aspartate Amino Transf (AST/SGOT) 19, Alanine Aminotransferase (ALT/SGPT) 22, Alkaline Phosphatase 79, Total Protein 7.2, Albumin 3.8, Amylase Level 48, Lipase 16, Serum Test, Qualitative NEGATIVE 06/20/20 19:37: Urine Color YELLOW, Urine Clarity CLEAR, Urine pH 7.0, Urine Specific [place] 1.010L, Urine Protein NEGATIVE, Urine Glucose (UA) NEGATIVE, Urine Ketones TRACEH, Urine Nitrite NEGATIVE, Urine Bilirubin NEGATIVE, Urine Urobilinogen 0.2, Urine Leukocyte Esterase NEGATIVE, Urine RBC (Auto) TRACE-I, Urine RBC 5- 10H, Urine WBC RARE, Urine Squamous Epithelial Cells 5-10, Urine Crystals NONE, Urine Bacteria TRACE, Urine Casts NONE, Urine Mucus NEGATIVE, Urine Culture Indicated NO Assessment/Plan Assessment/Plan Assessment/Plan s/p appendectomy Zosyn IV hydration pain control-will try Vicodin plan for discharge home today Clinical Quality Measures DVT/VTE Risk/Contraindication: RFS Level Per Nursing on Admit: 1=Low/No VTE PPX KELSEY REILLY DO 06/21/20 1602: Subjective Subjective/Events-last exam Still with pain but better. Pain about a 7/10. Tolerating diet. Denies n/v fever sweats chills shortness of breath or chest pain. Objective Exam General Appearance: No Apparent Distress, WD/WN HEENT: PERRL/EOMI, Normal ENT Inspection Neck: Normal Inspection, Supple Respiratory: Chest Non Tender, No Accessory Muscle Use, No Respiratory Distress Cardiovascular: Regular Rate, Rhythm, No JVD Gastrointestinal: soft, tenderness (incisional, c/d/i no erythema or signs of infection) Extremity: Normal Inspection, Normal Range of Motion Neurologic/Psychiatric: Alert, Oriented x3, Normal Mood/Affect Skin: Normal Color, Warm/Dry Lymphatic: No Adenopathy Assessment/Plan Assessment/Plan Assessment/Plan s/p appendectomy rlq abd pain n/v resolved patient still with pain discussed her allergy and pain control options, she is willing to try vicodin to see if better. patient diet as tolerates likely dc home later today. Final Diagnosis s/p appendectomy rlq abd pain n/v resolved Supervisory-Addendum Brief Verification & Attestation Participated in pt care: history, MDM, physical Personally performed: exam, history, MDM, supervision of care Care discussed with: Medical Student Procedures: n/a Results interpretation: Verified all documentation Verification and Attestation of Medical Student E/M Service A medical student performed and documented this service in my presence. I reviewed and verified all information documented by the medical student and made modifications to such information, when appropriate. I personally performed the physical exam and medical decision making. Kelsey Reilly, Jun 21, 2020,16:02 REJI VERA MED STUDENT Jun 21, 2020 13:32 KELSEY REILLY DO Jun 21, 2020 16:02
[2020-06-21] MEDS: LACTATED RINGERS 1,000 ML IV SCH (15:06)
[2020-06-21] MEDS ORDERED: HYDR-4226 PO (15:55)
[2020-06-21] MEDS ORDERED: DOCU-143 PO (15:55)
--- NOTE | 2020-06-21 15:56 | Discharge Inst-Simple/Standard ---
Discharge Inst-Standard Discharge Medications New, Converted or Re-Newed RX: RX on Chart Patient Instructions/Follow Up Plan of Care/Instructions/FU: 2 weeks Tom[place] Activity as Tolerated: No Discharge Diet: Regular Diet Other Inst to Patient Follow up Appt: Make appointment for 2 week. Instructions: No lifting greater than 10 pounds. No strenuous activity. May shower in 24 hours, no tub bath or soaking. Use incentive spirometer at home as directed. No Smoking Skin/Wound Care: You have special glue over your incision that will fall off on it's own. Symptoms to Report: Appetite Changes, Extremity Discoloration, Numbness/Tingling, Swelling Increased, Bleeding Excessive, Eyesight Changes, Pain Increased, Urine Color Change, Constipation(Persistent), Fever over 101 degree F, Pain/Pressure in chest, Urinating Difficulty, Cough Up/Vomit Blood, Heart Beat Irreg/Pounding, Pain/Pressure in jaw, Vaginal Bleeding Increase, Cramps in feet or legs, Lightheadedness, Pain/Pressure in shoulder, Diarrhea(Persistent), Memory Changes Suddenly, Questions/Concerns, Weight gain consecutive days, Dizziness/Fainting, Nausea/Vomiting, Shortness of Breath, Weight gain over 2 pounds If questions or concerns contact your physician Or seek help at emergency department. KELSEY GONZALEZ DO Jun 21, 2020 15:56
[2020-06-21 18:03] VITALS: BP 108/72
--- NOTE | 2020-06-21 18:05 | NUR ---
MOY CUEVAS demonstrates understanding of discharge instructions and accurately returns instructions upon questioning. Copy of Post-Discharge Instructions and Medication Discharge Instructions given to PT. MOY CUEVAS is able to manage continuing needs after discharge. Patients belongings returned to PT. Skin dry and intact; no breakdown noted. Patient discharged from [facility]- on 06/21/20 at 1805. MOY CUEVAS left floor via WC, accompanied by STAFF.
== END 2020-06-21 18:05 | disposition home or self-care (01) ==
LOC: EDUNIT# 16:53 → ER 16:54 → SDC 19:48 → 4TH 22:40
PROVIDERS: ADMIT Surgery; ATTEND Surgery
DX: K35.80 Unspecified acute appendicitis (principal); J45.909 Unspecified asthma, uncomplicated; E78.00 Pure hypercholesterolemia, unspecified; K21.9 Gastro-esophageal reflux disease without esophagitis; Z79.51 Long term (current) use of inhaled steroids; Z79.899 Other long term (current) drug therapy; Z88.5 Allergy status to narcotic agent
CPT/HCPCS: 36415; 74018; 74176; 80053; 81000; 82150; 83690; 84703; 85007; 85027; 88304; 90686; 94664

== ENCOUNTER 2020-11-30 04:43 | Emergency (ER) | payer SELFPAY ==
[~2020-11-30] VITALS: Ht 154.9 cm; Wt 81.6 kg
[~2020-11-30 04:43] MED LIST changes: -CIPR500T4 PO; +CIPR500T5 PO; +DOCU-143 PO; +HYDR-4226 PO
--- NOTE | 2020-11-30 05:09 | ED Respiratory ---
General Stated Complaint: ASTHMA Source: patient, family Exam Limitations: language barrier (HEATHER SANDERSON MD) History of Present Illness Date Seen by Provider: Nov 30, 2020 Time Seen by Provider: 05:00 Initial Comments Patient is a 40-year-old female who presents to the emergency room by POV this evening with her sister who acts as lifeguard, with a chief complaint of shortness of breath and asthma. Patient has had symptoms off and on for the last several days. Patient states that she has been short of breath and coughing this evening. She denies any upper respiratory tract symptoms of runny nose, congestion, sore throat. Patient has been using breathing treatments at home without any relief of symptoms. No sick contacts at home. Patient does not smoke. Patient has never been admitted to the hospital for her asthma in the past. Patient denies any chest pain but states that she does have a headache currently. No abdominal pain, nausea, vomiting diarrhea. Last menstrual cycle was 1 month ago. All other review of systems reviewed and negative except as stated above. Timing/Duration: this evening Severity: moderate Prior Episodes/Possible Cause: occasional episodes Modifying Factors: Improves With Albuterol Inhaler, Improves With Albuterol Nebulizer Associated Symptoms: headache (HEATHER SANDERSON MD) Allergies and Home Medications Allergies Coded Allergies: acetaminophen (Verified Allergy, Severe, Shortness of Breath, 06/21/20) Home Medications Albuterol Sulfate 6.7 Gm Hfa.aer.ad, 2 PUFF IH Q6H PRN for SHORTNESS OF BREATH, (Reported) Albuterol Sulfate 1 Puff Puff, 2 PUFF IH Q4H PRN for wheezing 1 PUFF = 90 MCG Prescribed by: HEATHER SANDERSON on 11/30/20 0600 Budesonide/Formoterol Fumarate 10.2 Gm Hfa.aer.ad, 2 PUFF IH BID Prescribed by: HEATHER SANDERSON on 11/30/20 0600 Docusate Sodium 100 Mg Capsule, 100 MG PO BID Prescribed by: KELSEY GONZALEZ on 06/21/20 1555 Hydrocodone/Acetaminophen 1 Each Tablet, 1 TAB PO Q4-6HR Prescribed by: KELSEY GONZALEZ on 06/21/20 1555 Ondansetron 4 Mg Tab.rapdis, 4 MG SL Q8H, (Reported) Pantoprazole Sodium 40 Mg Tablet.dr, 40 MG PO DAILY Prescribed by: KELSEY GONZALEZ on 06/24/17 1157 Prednisone 20 Mg Tab, 40 MG PO DAILY Prescribed by: HEATHER SANDERSON on 11/30/20 0514 Patient Home Medication List Home Medication List Reviewed: Yes (HEATHER SANDERSON MD) Review of Systems Review of Systems Constitutional: see HPI EENTM: no symptoms reported Respiratory: cough, short of breath, wheezing Cardiovascular: no symptoms reported Gastrointestinal: no symptoms reported Genitourinary: no symptoms reported : No LMP: Oct 30, 2020 Musculoskeletal: no symptoms reported Skin: no symptoms reported Psychiatric/Neurological: No Symptoms Reported (HEATHER SANDERSON MD) All Other Systems Reviewed Negative Unless Noted: Yes (HEATHER SANDERSON MD) Past Cguxdxl-Puuatb-Qkmpmi Hx Patient Social History Recent Hopitalizations: No (HEATHER SANDERSON MD) Immunizations Up To Date Tetanus Booster (TDap): Unknown (HEATHER SANDERSON MD) Seasonal Allergies Seasonal Allergies: Yes (HEATHER SANDERSON MD) Past Medical History Surgeries: Yes Tubal Ligation Respiratory: Yes Asthma Cardiac: No High Cholesterol Neurological: No 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 Disorders: No 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 No Pertinent Family Hx (HEATHER SANDERSON MD) Physical Exam Vital Signs - First Documented 11/30/20 11/30/20 04:51 05:20 Temp 36.4 Pulse 88 Resp 20 B/P (MAP) 120/85 (97) Pulse Ox 99 O2 Delivery Room Air (HANSA GARRIDO MD) Capillary Refill : (HEATHER SANDERSON MD) Height: 5'2.00" Weight: 170lbs. 0.0oz. 77.220595gx; 30.00 BMI Method:Stated General Appearance: WD/WN, no apparent distress Eyes: Bilateral Eye Normal Inspection, Bilateral Eye PERRL, Bilateral Eye EOMI Neck: normal inspection Respiratory: chest non-tender, decreased breath sounds, wheezing (Inspiratory and expiratory wheezing noted, poor overall air exchange; mild increased work of breathing) Cardiovascular: regular rate, rhythm, no murmur Gastrointestinal: non tender, soft Neurologic/Psychiatric: alert, normal mood/affect, oriented x 3 Skin: normal color, warm/dry (HEATHER SANDERSON MD) Progress/Results/Core Measures Suspected Sepsis SIRS Temperature: Pulse: Respiratory Rate: Blood Pressure / Mean: (HEATHER SANDERSON MD) Results/Orders Medications Given in ED Current Medications Medications Dose Ordered Sig/Kevin Route Start Time Stop Time Status Last Admin Dose Admin Albuterol Sulfate 12.5 mg ONCE ONCE INH 11/30/20 06:30 11/30/20 06:31 DC 11/30/20 06:34 12.5 MG Albuterol/ Ipratropium 3 ml ONCE ONCE INH 11/30/20 06:30 11/30/20 06:31 DC 11/30/20 06:34 3 ML Albuterol/ Ipratropium 6 ml ONCE ONCE INH 11/30/20 05:15 11/30/20 05:16 DC 11/30/20 05:22 6 ML Methylprednisolone Sodium Succinate 125 mg ONCE ONCE IVP 11/30/20 05:15 11/30/20 05:16 DC 11/30/20 05:14 125 MG (HANSA GARRIDO MD) Vital Signs/I&O 11/30/20 11/30/20 11/30/20 04:51 05:20 06:35 Temp 36.4 Pulse 88 Resp 20 B/P (MAP) 120/85 (97) Pulse Ox 99 95 O2 Delivery Room Air Room Air Room Air (HANSA GARRIDO MD) Vital Signs/I&O Capillary Refill : (HEATHER SANDERSON MD) Progress Note : Time: 05:35 Progress Note Patient is reevaluated after nebulizer treatment. She feels much better. Lungs are clear to auscultation bilaterally with only a scant expiratory wheeze noted posteriorly on the right lung coello. Patient's vital signs remained stable. We will watch her for another 20 minutes or so and make sure that she does not have rebound wheezing. Patient verbalizes understanding and is agreeable with the treatment plan. All questions are sought and answered. 0558 Reevaluated patient, she is having expiratory wheezing again. No increased work of breathing is noted but will repeat her treatment. Patient has asked me to refill her Symbicort and her proair as well. (HEATHER SANDERSON MD) Progress Note : Time: 08:14 Progress Note Patient completed her hour-long nebulizer treatment. She is feeling better and able to rest comfortably. Prescriptions were sent by Dr. Sanderson. Patient feels comfortable returning home at this time. She was reexamined and found to have resolution of wheezes. She has a slightly prolonged expiratory phase that has improved since 30 minutes ago. (HANSA GARRIDO MD) Departure Impression Primary Impression: Acute severe exacerbation of asthma Disposition: HOME, SELF-CARE Condition: Improved Departure-Patient Inst. Referrals: [facility]/ (PCP) Primary Care Physician RHYS POLANCO DO (Family) Primary Care Physician Patient Instructions: Asthma, Adult (DC) Add. Discharge Instructions: Fill your medications today as soon as possible and take them as prescribed. If you have allergy symptoms, you should also take a daily allergy medication such as loratadine, cetirizine, or fexofenadine. Avoid inhaled irritants such as cigarette smoke and dust. Follow-up with your primary care provider soon as possible. Call with questions or concerns. Return to the emergency room if you have worsening symptoms that do not resolve with inhaler or nebulizer treatments. Scripts Albuterol Sulfate (PROAIR HFA) 1 Puff Puff 2 PUFF IH Q4H PRN for wheezing, #1 PUFF 1 PUFF = 90 MCG Prov: HEATHER SANDERSON MD 11/30/20 Budesonide/Formoterol Fumarate (Symbicort 160-4.5 Mcg Inhaler) 10.2 Gm Hfa.aer.ad 2 PUFF IH BID, #1 INHALER Prov: HEATHER SANDERSON MD 11/30/20 Prednisone (Prednisone) 20 Mg Tab 40 MG PO DAILY, #6 TAB 0 Refills Prov: HEATHER SANDERSON MD 11/30/20 HEATHER SANDERSON MD Nov 30, 2020 05:09 HANSA GARRIDO MD Nov 30, 2020 08:15
[2020-11-30] MEDS ORDERED: PRD20T PO (05:14)
[2020-11-30] MEDS ORDERED: methylPREDNISolone 125 MG (Solu-MEDROL) VIAL IVP ONE (05:15)
[2020-11-30] MEDS ORDERED: RT-ALBUTEROL/IPRATROPIUM 3 ML (DUONEB) VIAL INH ONE ×2 (05:15→06:30)
[2020-11-30] MEDS ORDERED: RT-ALBUINH IH (06:00)
[2020-11-30] MEDS ORDERED: BUDE10.2 IH (06:00)
[2020-11-30] MEDS ORDERED: RT-ALBUTEROL SULF 2.5 MG/3 ML PRE-MIX VIAL INH ONE (06:30)
[2020-11-30 08:20] VITALS: BP 153/87
== END 2020-11-30 08:20 | disposition home or self-care (01) ==
LOC: EDUNIT# 04:43 → ER 04:48
DX: J45.901 Unspecified asthma with (acute) exacerbation (principal); K21.9 Gastro-esophageal reflux disease without esophagitis; Z88.6 Allergy status to analgesic agent; Z79.52 Long term (current) use of systemic steroids
CPT/HCPCS: 94640